=== PATIENT | female | born 2000 | race Caucasian/White ===

== ENCOUNTER 2023-02-08 21:44 | Emergency (ER) | payer OTHER ==
[~2023-02-08] VITALS: Ht 165.1 cm; Wt 52.2 kg
[2023-02-08 22:02] VITALS: BP_SYST 119; PULSE 67; RESP 18; TEMP 98.9; O2SAT 100
[2023-02-08] MEDS ORDERED: MED4 PO (22:51)
[2023-02-08 22:55] VITALS: BP_SYST 119; PULSE 67; RESP 18; TEMP 98.9; O2SAT 100
== END 2023-02-08 22:55 | disposition home or self-care (01) ==
LOC: SED 21:44
DX: J02.8 Acute pharyngitis due to other specified organisms (principal); Z79.899 Other long term (current) drug therapy
CPT/HCPCS: 99283